=== PATIENT | female | born 1950 | race Two or more races ===

== ENCOUNTER 2024-09-22 08:12 | Day surgery (SDC) | payer MEDICARE, OTHER, SELFPAY ==
[2024-08-25 14:12] LABS: Hematocrit 45.1 % (37.0-47.0); Hemoglobin 15.2 g/dL (12.0-16.0); Mean Corp Hgb Conc. 33.7 g/dL (33.0-37.0); Mean Corpuscular Hgb 30.3 pg (27.0-31.0); Mean Corpuscular Volume 89.8 fL (81.0-99.0); Mean Platelet Volume 10.7 fL (7.4-10.4); Platelet Count 339 10^3/uL (130-400); Red Blood Cell Count 5.02 10^6/uL (4.20-5.40); Red Cell Dist. Width 13.4 % (11.5-14.5); White Blood Cell Count 9.4 10^3/uL (4.8-10.8)
[2024-08-25 14:25] VITALS: BMI 23.9
[2024-08-25 14:43] LABS: ALT (SGPT) 19 U/L (0-35); AST (SGOT) 20 U/L (14-36); Albumin 4.7 g/dl (3.5-5.0); Alkaline Phosphatase 101 U/L (38-126); Blood Urea Nitrogen 8 mg/dl (7-17); Calcium 10.2 mg/dl (8.4-10.2); Carbon Dioxide 25 mmol/L (22-30); Chloride 100 mmol/L (98-107); Estimated Creatinine Clearance 68 ml/min; Glucose 124 mg/dl (70-99); Potassium 4.5 mmol/L (3.5-5.1); Sodium 139 mmol/L (135-145); Total Bilirubin 0.7 mg/dl (0.2-1.3); Total Protein 7.8 g/dl (6.3-8.2); eGFR > 60.00
[2024-08-26 09:13] LABS: Glycohemoglobin (HgbA1c) 5.9 % (4.0-5.6)
[2024-09-02 12:06] VITALS: BMI 23.9
[2024-09-22] VITALS (15 sets, daily range): BP systolic 95–178; BP diastolic 56–89; PULSE 64–65; O2SAT 95; BMI 23.9
[2024-09-22] MEDS: TYLENOL 650 MG PO ×3 (08:29→19:29)
[2024-09-22] MEDS: CELEBREX 200 MG PO (08:30)
[2024-09-22] MEDS: NORMOSOL-R/PLASMALYTE-A 1000 IV ×2 (08:50→14:22)
--- NOTE | 2024-09-22 12:36 | W.PN.UPDATE ---
Update Note
Progress Note Update
R ANGELINE Dr. Alonso 09/22/21
DVT ppx ASA
*EARLY D/C*
[2024-09-22] MEDS: ROXICODONE 5 MG PO (13:08)
--- NOTE | 2024-09-22 14:15 | PTCARENOTE ---
Patient received from PACU at 1410. Patient AAOx3, no c/o pain at present, ice to right hip, call moreno in reach. Patient tolerating sips of clears, lunch order placed, family at bedside.
--- NOTE | 2024-09-22 14:35 | W.DS.TRANS ---
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
-
Discharge Instructions:
Sleep Apnea Risk Low
Discharge Diagnosis/Procedures R ANGELINE Dr. Alonso 09/22/21
Diet As tolerated
Activity With Walker
Driving Restrictions No driving
Bathing Restrictions OK to Shower
Instructions:
Stand-Alone Forms: Total Hip/Knee Replacement D/C
Changes to Home Medications: Yes
Discharge Medications:
DC Medications w/original date entered in [facility]
lisinopril 10 mg tablet 10 mg PO DAILY 08/22/24
magnesium 250 mg tablet 250 mg PO DAILY 08/25/24
mupirocin 2 % topical ointment 1 applic intranasal BID #1 tube 08/25/24
amlodipine 2.5 mg tablet 2.5 mg PO DAILY 09/10/24
atenolol 50 mg tablet 50 mg PO DAILY 09/10/24
acetaminophen 325 mg tablet (Tylenol) 650 mg (2 x 325 mg) PO QID #1 tab 09/22/24
aspirin 325 mg tablet 325 mg PO DAILY blood clot prevention #1 tab 09/22/24
celecoxib 200 mg capsule 200 mg PO DAILY Anti-inflammatory #14 caps 09/22/24
dexamethasone 4 mg tablet 4 mg PO BID inflammation #6 tabs 09/22/24
docusate sodium 100 mg capsule (Colace) 100 mg PO BID stool softner #1 cap 09/22/24
famotidine 20 mg tablet 20 mg PO HS GI prophylaxis #30 tabs 09/22/24
gabapentin 300 mg capsule 300 mg PO HS sleep/pain #10 caps 09/22/24
magnesium hydroxide 400 mg/5 mL oral suspension (Milk of Magnesia) 30 ml PO HS PRN Constipation #1 mL 09/22/24
ondansetron 4 mg disintegrating tablet 4 mg PO Q6H PRN n/v #20 tabs 09/22/24
oxycodone 5 mg tablet 5 mg PO Q6H PRN 1 tab moderate pain, 2 tabs severe pain #30 tabs 09/22/24
sennosides 8.6 mg tablet (Senokot) 17.2 mg (2 x 8.6 mg) PO BID laxative #2 tabs 09/22/24
Home Medication Changes
aspirin 325 mg tablet 325 mg PO DAILY blood clot prevention #1 tab 09/22/24
celecoxib 200 mg capsule 200 mg PO DAILY Anti-inflammatory #14 caps 09/22/24
dexamethasone 4 mg tablet 4 mg PO BID inflammation #6 tabs 09/22/24
docusate sodium 100 mg capsule (Colace) 100 mg PO BID stool softner #1 cap 09/22/24
famotidine 20 mg tablet 20 mg PO HS GI prophylaxis #30 tabs 09/22/24
gabapentin 300 mg capsule 300 mg PO HS sleep/pain #10 caps 09/22/24
magnesium hydroxide 400 mg/5 mL oral suspension (Milk of Magnesia) 30 ml PO HS PRN Constipation #1 mL 09/22/24
ondansetron 4 mg disintegrating tablet 4 mg PO Q6H PRN n/v #20 tabs 09/22/24
oxycodone 5 mg tablet 5 mg PO Q6H PRN 1 tab moderate pain, 2 tabs severe pain #30 tabs 09/22/24
sennosides 8.6 mg tablet (Senokot) 17.2 mg (2 x 8.6 mg) PO BID laxative #2 tabs 09/22/24
Pending Results: No
[2024-09-22] MEDS: ASPIRIN 325 MG PO (17:36)
[2024-09-22] MEDS: ANCEF 5 IV (17:36)
[2024-09-22] MEDS: BACTROBAN 2% OINTMENT 1 APPLIC NASAL (19:28)
[2024-09-22] MEDS: SENOKOT 17.2 MG PO (19:29)
[2024-09-22] MEDS: COLACE 100 MG PO (19:29)
[2024-09-22] MEDS: ULTRAM 25 MG PO (21:57)
[2024-09-22] MEDS: NEURONTIN 300 MG PO (21:57)
[2024-09-22] MEDS: TORADOL 15 MG IV (21:58)
[2024-09-22] MEDS: DECADRON 4 MG IV (21:58)
[2024-09-23] MEDS: TYLENOL PO (01:07)
[2024-09-23] MEDS: ANCEF 5 IV (02:07)
[2024-09-23 03:20] VITALS: BP 141/74
[2024-09-23] MEDS: TYLENOL 650 MG PO ×2 (04:18→07:34)
[2024-09-23] MEDS: ULTRAM 25 MG PO (06:00)
[2024-09-23] MEDS: DECADRON 4 MG IV (06:00)
[2024-09-23] MEDS: TORADOL 15 MG IV (06:00)
[2024-09-23 07:30] VITALS: BP 139/68
[2024-09-23] MEDS: CELEBREX 200 MG PO (07:34)
[2024-09-23] MEDS: COLACE 100 MG PO (07:35)
[2024-09-23] MEDS: ASPIRIN 325 MG PO (07:35)
[2024-09-23] MEDS: SENOKOT 17.2 MG PO (07:35)
[2024-09-23] MEDS: MAG-TAB SR 84 MG PO (07:35)
[2024-09-23] MEDS: BACTROBAN 2% OINTMENT 1 APPLIC NASAL (07:36)
[2024-09-23] MEDS: TENORMIN 25 MG PO (07:39)
--- NOTE | 2024-09-23 08:21 | W.PN.ORTHO ---
Today's Communication / Plan
-
d/c
Assessment
.
Distal Motor Intact: Yes
Dressing:
Clean, dry and intact.
Plan
.
Surgery / Date: R ANGELINE Alonso 09/22/21
DVT Prophylaxis: Aspirin
Activity:
Out of bed.
PT/OT
Discharge Plan: Home w/ Outpatient PT
Subjective
.
.:
Patient resting comfortably.
Vital Signs and Labs
.
Vital Signs and Labs:
Lab Results
08/25/24 13:06
08/25/24 13:06
Temp Pulse Resp BP Pulse Ox
98.2 F 60 16 139/68 93
09/23/24 03:20 09/23/24 07:40 09/23/24 03:20 09/23/24 07:40 09/23/24 03:20
Non-invasive Hgb result: 12.0
Physical Exam
-
HEENT: No pallor, cyanosis, or jaundice. Throat clear.
NECK: Supple. No JVD.
RESPIRATORY: Lungs clear to auscultation.
CVS: S1, S2 normal. RRR.� No murmur, rub or gallop.
ABDOMEN: Soft, non-tender. No distension. BS+/normal.
EXTREMITIES: strength equal, no calf pain with palpation
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
--- NOTE | 2024-09-23 08:22 | CM ---
CM met with patient in room. Confirmed demographics. Patient lives independently with . Patent does not have a history of VN, SNF. Patient reports having handicap accessible equipment at home. Patient plans to purchase hip kit off [employer].
Patient is active with her PCP. Patient uses [facility] for medication services.
Patient has PT schedules at [facility] scheduled for 09/25.
PLAN: home with out patient PT/OT.
[2024-09-23 08:23] VITALS: BP 139/68; BP 152/72; PULSE 60; O2SAT 97
[2024-09-23 09:14] VITALS: BP 131/75; BP 134/74; PULSE 58; O2SAT 96
[2024-09-23 09:34] VITALS: BP 129/71
== END 2024-09-23 10:58 | disposition home or self-care (01) | DRG 470 ==
LOC: PACU 08:12
PROVIDERS: ATTENDING PHYSICIAN Specialist; FAMILY PHYSICIAN Nurse Practitioner Family
PROC: 0SR90JA Replacement of Right Hip Joint with Synthetic Substitute, Uncemented, Open Approach (ICD-10-PCS; 2024-09-22)
DX: M16.11 Unilateral primary osteoarthritis, right hip (principal); I10 Essential (primary) hypertension; F41.9 Anxiety disorder, unspecified; R73.03 Prediabetes
CPT/HCPCS: 27130; 36415; 73502; 80053; 83036; 85027; 87070; 93005; 97110; 97116; 97162; 97166; 97535; C1713; C1776